=== PATIENT | male | born 1995 | race Caucasian/White ===

== ENCOUNTER 2023-03-31 19:58 | Emergency (ER) | payer MEDICAID, SELFPAY ==
[2023-03-31] VITALS (24 sets, daily range): BP systolic 135–189; BP diastolic 76–151; PULSE 70–122; RESP 13–29; O2SAT 90–99
[2023-03-31] MEDS: Tranexamic Acid 1,000 MG/10 ML VIAL 1000 MG IVP (20:02)
[2023-03-31] MEDS: fentaNYL 100 MCG/2 ML VIAL 50 MCG IVP ×4 (20:06→20:50)
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
[2023-03-31] MEDS: ceFAZolin 1 GM/50 ML BAG 50 GM (20:20)
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
[2023-03-31] MEDS: fentaNYL 100 MCG/2 ML VIAL ×2 (21:23→21:24)
== END 2023-03-31 21:26 | disposition short-term general hospital (02) ==
LOC: ER 22:26
PROVIDERS: Emergency Provider Emergency Medicine
DX: S51.812A Laceration without foreign body of left forearm, initial encounter (principal); S42.392B Other fracture of shaft of left humerus, initial encounter for open fracture; R40.2412 Glasgow coma scale score 13-15, at arrival to emergency department; V43.52XA Car driver injured in collision with other type car in traffic accident, initial encounter; Y92.9 Unspecified place or not applicable
CPT/HCPCS: 90472; 96374; 99285; J0690; J3010